=== PATIENT | female | born 1985 | race Caucasian/White ===

== ENCOUNTER 2024-07-31 06:39 | Day surgery (SDC) | payer BC, SELFPAY ==
[2024-07-31 07:46] VITALS: BP 115/86; PULSE 75; RESP 16; TEMP 36.1; O2SAT 100
[2024-07-31 07:51] VITALS: BMI 36.2
[2024-07-31] MEDS: LACTATED RINGERS 1000ML 1,000 ML 50 ML IV (07:52)
--- NOTE | 2024-07-31 08:03 | P.HP_ITS ---
History of Present Illness *Admission Date: 07/31/24 *Reason for visit:: Abdominal pain, bloating, nausea, vomiting and belching *History of present illness: Mrs. Obando is a 38-year-old female with long standing Crohn's disease of the small intestine. She has been on Stelara. In the past she had been on Humira, Entyvio and Cimzia with allergic reactions. Her colonoscopy in July 2018 showed complete colonoscopic remission. She did have ileal resection with ileocolonic anastomosis in August 2010 (Charli Guy MD). Her most recent colonoscopy with id was July 2023 and she had mild anastomotic stenosis which was dilated to 10 to 12 mm (from 7 to 8 mm) with primary remission of her ileal Crohn's disease and superficial ulceration of the anastomosis. The colonoscopy part was normal. The patient does state that recently she has had more problems. She did develop worsening diarrhea in May and her PCR testing came back positive for C. difficile. 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 She still has up to 10 loose watery bowel movements daily. Since the treatment, she still has fairly significant abdominal pain. She does take NSAIDs sometimes for the abdominal pain. She has had marked bloating, nausea and some vomiting. She has had moderate belching. Her KUB in the physician office showed no gaseous distention or obstipation. The patient remains on Stelara for her Crohn's disease and her recent fecal calprotectin level was 8. She also had negative H. pylori testing. [facility] Disclaimer: The information contained in this section may have been updated after the patient was seen, as this information can be updated by other users. Medical History Thyroid disease Sleep apnea Pelvic congestion syndrome GERD (gastroesophageal reflux disease) Crohn's disease Anemia Surgical History H/O: hysterectomy History of cholecystectomy H/O: Family History Other Family history of diabetes mellitus type II Family history of hypertension Social History Smoking Status: Current every day smoker alcohol intake: never substance use type: denies use current occupational status: employed Travel in the last 8 weeks: None caffeine: Yes Have you lived/traveled outside US in past 30 days?: No Contact w/someone who lives/traveled outside US past 30 days?: No Exposure to someone with infectious disease in past 14 days?: No Do you have a fever (greater than 100.4 F or 38 C)?: No Have you tested positive for COVID-19: No Exposed to someone with COVID-19 in past 14 days?: No Do you have a sore throat?: No Do you have a cough?: No Do you have any weakness?: No Do you have any diarrhea?: No Are you experiencing any unusual bleeding?: No Do you have any muscle aches/pain?: No Do you have any abdominal pain?: No Are you experiencing loss of taste or smell?: No Review of Systems Review of Systems Review of systems (narrative): Negative *Cardiovascular Comments: Negative *Gastrointestinal Comments: Negative *Genitourinary Comments: Negative *Musculoskeletal Comments: Negative *Neurologic Comments: Negative Meds Home Medications and Allergies Home Medications ?Medication ?Instructions ?Recorded ?Confirmed ?Type cholecalciferol (vitamin D3) 25 25 mcg PO DAILY 07/05/24 07/29/24 History mcg (1,000 unit) capsule ustekinumab 90 mg/mL subcutaneous 90 mg SQ Q8W 07/05/24 07/29/24 History syringe (Stelara) Lactobacillus rhamnosus GG 10 1 cap PO DAILY 07/09/24 07/29/24 History billion cell capsule (Culturelle) amitriptyline 10 mg tablet 10 mg PO BID #60 tabs 07/09/24 07/29/24 Rx kufqkewxpt-rqsbxcvtyhykg-ghxzslqk 2 tab PO DAILY Headache 07/09/24 07/29/24 History 50 mg-325 mg-40 mg tablet dicyclomine 10 mg capsule 10 mg PO ONCE PRN Fever Or Pain 07/09/24 07/29/24 History yjyhxq-eptarggg-iwfprbw 1 cap PO .With meals #60 caps 07/09/24 07/29/24 Rx 36,000-114,000-180,000 unit capsule,delay rel (Creon) New Prescriptions to Start Prescriptions: Allergies Allergy/AdvReac Type Severity Reaction Status Date / Time adalimumab (From Humira) Allergy Hives Verified 07/29/24 11:37 vedolizumab (From Entyvio) Allergy Hives Verified 07/29/24 11:37 Exam Data for Last 24 hours Vital signs and Labs for Last 24 Hours: Temp Pulse Resp BP Pulse Ox O2 Del Method 97 F L 75 16 115/86 100 Room Air 07/31/24 07:46 07/31/24 07:46 07/31/24 07:46 07/31/24 07:46 07/31/24 07:46 07/31/24 07:46 I & O for Last 24 hours: Intake & Output 07/28/24 07/29/24 07/30/24 07/31/24 23:59 23:59 23:59 23:59 Weight 198 lb *Routine HEENT Exam Head: Present normocephalic Eye: Present EOMI and PERRL ENT: Present mucous membranes moist *Routine Neck Exam Neck: Present supple *Routine Respiratory Exam Respiratory: Present CTA bilaterally *Routine Cardiovascular Exam Cardiovascular: Present RRR *Routine Abdominal Exam Abdominal: Present soft and normoactive bowel sounds; Absent tenderness *Routine Rectal Exam Rectal:: deferred *Routine Genitalia Exam Genitalia:: deferred *Routine Extremities Exam Extremities: Absent cyanosis, clubbing or edema *Routine Skin Exam Skin: Present warm; Absent rash *Routine Neurological Exam Neurological: Present alert and oriented X3 Assessment and Plan *Assessment and plan (1) Nausea and vomiting: Status: Acute Category: Medical Code(s): R11.2 - Nausea with vomiting, unspecified (2) Belching: Status: Acute Category: Medical Code(s): R14.2 - Eructation (3) Nausea: Status: Acute Category: Medical Code(s): R11.0 - Nausea (4) Diarrhea: Status: Acute Category: Medical Code(s): R19.7 - Diarrhea, unspecified (5) Functional abdominal pain syndrome: Status: Acute Category: Medical Code(s): R10.9 - Unspecified abdominal pain (6) Anastomotic stricture of small intestine: Status: Acute Category: Medical Code(s): K91.89 - Other postprocedural complications and disorders of digestive system; K91.30 - Postprocedural intestinal obstruction, unspecified as to partial versus complete (7) Crohn's disease of small intestine without complication: Status: Acute Category: Medical Code(s): K50.00 - Crohn's disease of small intestine without complications Plan A/P: 1. Abdominal pain with bloating, nausea, vomiting, belching and diarrhea is the preprocedural diagnosis. The patient will be anesthetized/sedated using MAC sedation. The patient has been seen and examined. Cardiac and lung assessment prior to the examination is stable. Proceed with planned diagnostic EGD
--- NOTE | 2024-07-31 08:05 | HMH.PROCNOTE ---
[facility] Procedure Note Date: 07/31/24 Time: 08:18 Procedure Note:: Upper Endoscopy Procedure Report: Esophagogastroduodenoscopy with cold biopsies Endoscopost: Ag William II, MD Referring Physician: Milagros Randhawa PA-C, [facility] [employer] [address] [place] [id number] Date of Procedure: July 31, 2024 Equipment: Olympus GIF 190 standard upper endoscope Sedation: MAC sedation Indications: Mrs. Obando is a 38-year-old female with long standing Crohn's disease of the small intestine. She has been on Stelara. In the past she had been on Humira, Entyvio and Cimzia with allergic reactions. Her colonoscopy in July 2018 showed complete colonoscopic remission. She did have ileal resection with ileocolonic anastomosis in August 2010 (Charli Guy MD). Her most recent colonoscopy with me was July 2023 and she had mild anastomotic stenosis which was dilated to 10 to 12 mm (from 7 to 8 mm) with primary remission of her ileal Crohn's disease and superficial ulceration of the anastomosis. The colonoscopy part was normal. The patient does state that recently she has had more problems. She did develop worsening diarrhea in May and her PCR testing came back positive for C. difficile. 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 She still has up to 10 loose watery bowel movements daily. Since the treatment, she still has fairly significant abdominal pain. She does take NSAIDs sometimes for the abdominal pain. She has had marked bloating, nausea and some vomiting. She has had moderate belching. Her KUB in the physician office showed no gaseous distention or obstipation. The patient remains on Stelara for her Crohn's disease and her recent fecal calprotectin level was 8. She also had negative H. pylori testing. Procedure: Prior to the procedure, a history and physical exam was performed, and patient's medications and allergies were reviewed. The risks, benefits and alternatives of the sedation and procedure were discussed with the patient. All questions were answered and informed consent was obtained. The patient was brought to the procedure room. Patient identification and proposed procedure were verified by the physician and the nurse. The patient was placed in a left lateral decubitus position and the scope was passed under direct vision. Throughout the procedure, the patient's blood pressure, pulse, and oxygen saturations were monitored continuously. The upper GI endoscopy was accomplished without difficulty. The patient tolerated the procedure well. Findings: The scope was passed directly into the upper esophagus and advanced to the third portion of the duodenum. The post bulbar duodenum and duodenal bulb were normal with normal mucosa and conniventes. Cold biopsies were taken from the first portion of duodenum and duodenal bulb to rule out celiac disease. The scope was withdrawn through a normal duodenal bulb and pylorus into the stomach. There was some mild linear reactive gastropathy of the antrum. The body and fundus of the stomach were normal. Upon retroflexion there was no hiatal hernia. Biopsies were taken from the antrum. The scope was then withdrawn into the esophagus. There was no evidence of reflux esophagitis or Bustillo's. The remainder of the esophageal mucosa was normal. Impression: 1. Mild linear reactive gastropathy Plan: I will follow-up the biopsies. I do feel that her anastomotic stricture is playing some role. I will discuss today about repeating colonoscopy with dilation of the anastomotic stricture. If this is more ischemic, she will possibly need referral to colorectal surgeon for primary repair and revision.
[2024-07-31 08:08] VITALS: O2SAT 99
--- NOTE | 2024-07-31 08:09 | P.PNANES_ITS ---
[facility] Disclaimer: The information contained in this section may have been updated after the patient was seen, as this information can be updated by other users. Medical History Thyroid disease Sleep apnea Pelvic congestion syndrome GERD (gastroesophageal reflux disease) Crohn's disease Anemia Surgical History H/O: hysterectomy History of cholecystectomy H/O: Family History Other Family history of diabetes mellitus type II Family history of hypertension Social History Smoking Status: Current every day smoker alcohol intake: never substance use type: denies use current occupational status: employed Travel in the last 8 weeks: None caffeine: Yes Have you lived/traveled outside [place] in past 30 days?: No Contact w/someone who lives/traveled outside US past 30 days?: No Exposure to someone with infectious disease in past 14 days?: No Do you have a fever (greater than 100.4 F or 38 C)?: No Have you tested positive for COVID-19: No Exposed to someone with COVID-19 in past 14 days?: No Do you have a sore throat?: No Do you have a cough?: No Do you have any weakness?: No Do you have any diarrhea?: No Are you experiencing any unusual bleeding?: No Do you have any muscle aches/pain?: No Do you have any abdominal pain?: No Are you experiencing loss of taste or smell?: No [facility] Anesthesia Checklist Patient Identification Patient Identification: Arm Band Structural Data Admitted From: Home Planned Operative Procedure/s: EGD Consent for Planned Operative Procedure(s) Verified: Yes Verified Documents: Surgical Consent and History and Physical NPO Status Verified Time NPO: 00:00 Additional verifications Anesthesia Reactions: Yes (PONV) Airway Assessment Mallampati Score:: Class II C-Spine Mobility Assessed: Yes TMJ Mobility Assessed: Yes Dentition: Good Dentition Neurological Assessment Level of Consciousness: Awake, Alert and Appropriate Anesthesia Plan Anesthesia Risk discussed: Yes Anesthesia Plan: Verified ASA Class: II Anesthesia Type: MAC
[2024-07-31 08:24] VITALS: BP 108/71; PULSE 18; RESP 16; TEMP 36.1; O2SAT 97
[2024-07-31 08:34] VITALS: BP 106/70; PULSE 87; RESP 16; O2SAT 98
[2024-07-31 08:44] VITALS: BP 100/64; PULSE 87; RESP 18; O2SAT 98
[2024-07-31 08:54] VITALS: BP 116/75; PULSE 88; RESP 18; O2SAT 99
== END 2024-07-31 09:18 | disposition home or self-care (01) ==
PROVIDERS: Visit Provider Internal Medicine Gastroenterology
PROC: 0DJ08ZZ Inspection of Upper Intestinal Tract, Via Natural or Artificial Opening Endoscopic (ICD-10-PCS; CPT 43239; principal; 2024-07-31 08:30)
DX: K31.9 Disease of stomach and duodenum, unspecified (principal); R11.2 Nausea with vomiting, unspecified; R14.2 Eructation; R19.7 Diarrhea, unspecified; R10.9 Unspecified abdominal pain; K91.89 Other postprocedural complications and disorders of digestive system; K91.30 Postprocedural intestinal obstruction, unspecified as to partial versus complete; K50.00 Crohn's disease of small intestine without complications
CPT/HCPCS: 43239; J2405; J7120

== ENCOUNTER 2024-10-28 06:53 | Day surgery (SDC) | payer BC, SELFPAY ==
[2024-10-25 09:46] VITALS: BMI 35.3
[2024-10-28 07:22] VITALS: BP 119/81; PULSE 81; RESP 16; TEMP 36.1; O2SAT 98
[2024-10-28] MEDS: LACTATED RINGERS 1000ML 1,000 ML 50 ML IV (07:41)
--- NOTE | 2024-10-28 07:52 | P.PNANES_ITS ---
[facility] Disclaimer: The information contained in this section may have been updated after the patient was seen, as this information can be updated by other users. Medical History Thyroid disease Sleep apnea Pelvic congestion syndrome GERD (gastroesophageal reflux disease) Crohn's disease Anemia Surgical History History of bowel resection History of lithotripsy History of dilatation and curettage History of tubal ligation History of adenoidectomy H/O: hysterectomy History of cholecystectomy H/O: Family History Other Family history of diabetes mellitus type II Family history of hypertension Social History (Updated 10/28/24 @ 07:38 by Mera Gray RN) Smoking Status: Former smoker alcohol intake: never substance use type: denies use current occupational status: employed Travel in the last 8 weeks?: None caffeine: Yes Have you lived/traveled outside US in past 30 days?: No Contact w/someone who lives/traveled outside US past 30 days?: No Exposure to someone with infectious disease in past 14 days?: No Do you have a fever (greater than 100.4 F or 38 C)?: No Have you tested positive for COVID-19?: No Exposed to someone with COVID-19 in past 14 days?: No Do you have a sore throat?: No Do you have a cough?: No Do you have any weakness?: No Are you experiencing any nausea/vomitting?: No Do you have any diarrhea?: No Are you experiencing any unusual bleeding?: No Do you have any muscle aches/pain?: No Do you have any abdominal pain?: No Are you experiencing loss of taste or smell?: No [facility] Anesthesia Checklist Patient Identification Patient Identification: Arm Band Structural Data Admitted From: Home Planned Operative Procedure/s: Colonoscopy Consent for Planned Operative Procedure(s) Verified: Yes Verified Documents: Surgical Consent and History and Physical NPO Status Verified Time NPO: 04:15 Additional verifications Anesthesia Reactions: Yes (PONV) Airway Assessment Mallampati Score:: Class II C-Spine Mobility Assessed: Yes TMJ Mobility Assessed: Yes Dentition: Good Dentition Neurological Assessment Level of Consciousness: Awake, Alert and Appropriate Anesthesia Plan Anesthesia Risk discussed: Yes Anesthesia Plan: Verified ASA Class: II Anesthesia Type: MAC
--- NOTE | 2024-10-28 08:07 | EXP.HP ---
History of Present Illness *Admission Date: 10/28/24 *Reason for visit:: Anastomotic stricture *History of present illness: Mrs. Obando is a 39-year-old female with long standing Crohn's disease of the small intestine. She has been on Stelara. In the past she had been on Humira, Entyvio and Cimzia with allergic reactions. Her colonoscopy in July 2018 showed complete colonoscopic remission. She did have ileal resection with ileocolonic anastomosis in August 2010 (Charli Guy MD). Her most recent colonoscopy with ct was July 2023 and she had mild anastomotic stenosis which was dilated to 10 to 12 mm (from 7 to 8 mm) with primary remission of her ileal Crohn's disease and superficial ulceration of the anastomosis. The colonoscopy part was normal. The patient does state that recently she has had more problems. She did develop worsening diarrhea in May and her PCR testing came back positive for C. difficile. 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 She still has up to 10 loose watery bowel movements daily. Since the treatment, she still has fairly significant abdominal pain. She does take NSAIDs sometimes for the abdominal pain. She has had marked bloating, nausea and some vomiting. She has had moderate belching. Her KUB in the physician office showed no gaseous distention or obstipation. The patient remains on Stelara for her Crohn's disease and her recent fecal calprotectin level was 8. She also had negative H. pylori testing. [facility] Disclaimer: The information contained in this section may have been updated after the patient was seen, as this information can be updated by other users. Medical History (Updated 10/28/24 @ 08:09 by Ag William II, MD) Thyroid disease Sleep apnea Pelvic congestion syndrome GERD (gastroesophageal reflux disease) Crohn's disease Anemia Surgical History History of bowel resection History of lithotripsy History of dilatation and curettage History of tubal ligation History of adenoidectomy H/O: hysterectomy History of cholecystectomy H/O: Family History Other Family history of diabetes mellitus type II Family history of hypertension Social History (Updated 10/28/24 @ 07:38 by Mera Gray RN) Smoking Status: Former smoker alcohol intake: never substance use type: denies use current occupational status: employed Travel in the last 8 weeks?: None caffeine: Yes Have you lived/traveled outside US in past 30 days?: No Contact w/someone who lives/traveled outside US past 30 days?: No Exposure to someone with infectious disease in past 14 days?: No Do you have a fever (greater than 100.4 F or 38 C)?: No Have you tested positive for COVID-19?: No Exposed to someone with COVID-19 in past 14 days?: No Do you have a sore throat?: No Do you have a cough?: No Do you have any weakness?: No Are you experiencing any nausea/vomitting?: No Do you have any diarrhea?: No Are you experiencing any unusual bleeding?: No Do you have any muscle aches/pain?: No Do you have any abdominal pain?: No Are you experiencing loss of taste or smell?: No Review of Systems Review of Systems Review of systems (narrative): Negative *Cardiovascular Comments: Negative *Gastrointestinal Comments: Negative *Genitourinary Comments: Negative *Musculoskeletal Comments: Negative *Neurologic Comments: Negative Meds Home Medications and Allergies Home Medications ?Medication ?Instructions ?Recorded ?Confirmed ?Type cholecalciferol (vitamin D3) 25 25 mcg PO DAILY 07/05/24 10/28/24 History mcg (1,000 unit) capsule ustekinumab 90 mg/mL subcutaneous 90 mg SQ Q8W 07/05/24 10/28/24 History syringe (Stelara) sizwcfklla-lipurooidlfxr-qhvxbtcf 2 tab PO DAILY Headache 07/09/24 10/28/24 History 50 mg-325 mg-40 mg tablet jhtjtc-akyyvuuw-pigihbs 1 cap PO .With meals #60 caps 07/09/24 10/28/24 Rx 36,000-114,000-180,000 unit capsule,delay rel (Creon) sodium,potassium,mag sulfates 17.5 See Rx Instructions PO .COMPLEX 10/15/24 10/28/24 Rx gram-3.13 gram-1.6 gram oral soln #354 mL (Suprep Bowel Prep Kit) New Prescriptions to Start Prescriptions: Allergies Allergy/AdvReac Type Severity Reaction Status Date / Time adalimumab (From Humira) Allergy Hives Verified 10/28/24 07:16 vedolizumab (From Entyvio) Allergy Hives Verified 10/28/24 07:16 Exam Data for Last 24 hours Vital signs and Labs for Last 24 Hours: Temp Pulse Resp BP Pulse Ox O2 Del Method 97.0 F L 81 16 119/81 98 Room Air 10/28/24 07:22 10/28/24 07:22 10/28/24 07:22 10/28/24 07:22 10/28/24 07:22 10/28/24 07:22 I & O for Last 24 hours: Intake & Output 10/25/24 10/26/24 10/27/24 10/28/24 23:59 23:59 23:59 23:59 Weight 193 lb *Routine HEENT Exam Head: Present normocephalic Eye: Present EOMI and PERRL ENT: Present mucous membranes moist *Routine Neck Exam Neck: Present supple *Routine Respiratory Exam Respiratory: Present CTA bilaterally *Routine Cardiovascular Exam Cardiovascular: Present RRR *Routine Abdominal Exam Abdominal: Present soft and normoactive bowel sounds; Absent tenderness *Routine Rectal Exam Rectal:: deferred *Routine Genitalia Exam Genitalia:: deferred *Routine Extremities Exam Extremities: Absent cyanosis, clubbing or edema *Routine Skin Exam Skin: Present warm; Absent rash *Routine Neurological Exam Neurological: Present alert and oriented X3 Assessment and Plan *Assessment and plan (1) Anastomotic stricture of intestine: Status: Acute Category: Medical Code(s): K91.30 - Postprocedural intestinal obstruction, unspecified as to partial versus complete (2) History of Crohn's disease: Status: Acute Category: Medical Code(s): Z87.19 - Personal history of other diseases of the digestive system (3) Crohn's disease of small intestine with intestinal obstruction: Status: Acute Category: Medical Code(s): K50.012 - Crohn's disease of small intestine with intestinal obstruction (4) History of Clostridioides difficile colitis: Status: Acute Category: Medical Code(s): Z86.19 - Personal history of other infectious and parasitic diseases (5) Bloating: Status: Acute Category: Medical Code(s): R14.0 - Abdominal distension (gaseous) (6) Nausea: Status: Acute Category: Medical Code(s): R11.0 - Nausea (7) Diarrhea: Status: Acute Category: Medical Code(s): R19.7 - Diarrhea, unspecified Plan A/P: 1. Bloating, nausea, diarrhea with history of Crohn's disease and anastomotic stricture is the preprocedural diagnosis. The patient will be anesthetized/sedated using MAC sedation. The patient has been seen and examined. Cardiac and lung assessment prior to the examination is stable. Proceed with planned diagnostic colonoscopy.
--- NOTE | 2024-10-28 08:10 | [facility].PROCNOTE ---
[facility] Procedure Note Date: 10/28/24 Time: 08:38 Procedure Note:: Colonoscopy Procedure Report: Colonoscopy with TTS balloon dilation and cold biopsies Endoscopist: Ag William II, MD Referring physician: Milagros Randhawa PA-C, [facility], [address] [place] [id number] Date of Procedure: October 28, 2024 Equipment: Olympus 190 variable stiffness pediatric colonoscope Sedation: MAC sedation Indication: Mrs. Obando is a 39-year-old female who is here for diagnostic colonoscopy. The patient has had long standing Crohn's disease of the small intestine and has been on Stelara. In the past she had been on Humira, Entyvio and Cimzia with allergic reactions. Her colonoscopy in July 2018 showed complete colonoscopic remission. She did have ileal resection with ileocolonic anastomosis in August 2010 (Charli Guy MD). Her most recent colonoscopy with me was July 2023 and she had mild anastomotic stenosis which was dilated to 10 to 12 mm (from 7 to 8 mm) with primary remission of her ileal Crohn's disease and superficial ulceration of the anastomosis. The colonoscopy part was normal. The patient does state that recently she has had more problems. She did develop worsening diarrhea in May and her PCR testing came back positive for C. difficile. 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 She still has up to 10 loose watery bowel movements daily. Since the treatment, she still has fairly significant abdominal pain. She does take NSAIDs sometimes for the abdominal pain. She has had marked bloating, nausea and some vomiting. She has had moderate belching. Her KUB in the physician office showed no gaseous distention or obstipation. The patient remains on Stelara for her Crohn's disease and her recent fecal calprotectin level was 8. She also had negative H. pylori testing. Procedure: Prior to the procedure, a history and physical exam was performed, and patient's medications and allergies were reviewed. The risks, benefits and alternatives of the sedation and procedure were discussed with the patient. All questions were answered and informed consent was obtained. The patient was brought to the procedure room. Patient identification and proposed procedure were verified by the physician and the nurse. The patient was placed in a left lateral decubitus position and the scope was passed under direct vision. Throughout the procedure, the patient's blood pressure, pulse, and oxygen saturations were monitored continuously. The colonoscopy was accomplished without difficulty. The patient tolerated the procedure well. Findings: On digital rectal examination there was normal rectal tone. There were no external hemorrhoids. The colonoscope was introduced through the anal canal to the rectum and advanced to the ileocolonic anastomosis. This was an end to side anastomosis and there was some ulceration and stenosis at the anastomosis. The colonoscope could not be introduced into the ileum initially. A wire-guided TTS hydrostatic balloon was utilized and dilated from 12 up to 15 mm with the TTS hydrostatic balloon and the colonoscope could then be advanced into the ileum. The colonoscope was advanced approximately 20 to 25 cm into the ileum and there was no evidence of any active Crohn's disease. The scope was withdrawn from the ileum through the anastomosis into the colon. The remaining ascending, transverse, descending, sigmoid and rectum were grossly normal. Cold biopsies were taken from the remaining ascending colon to rule out microscopic colitis. There were no evidence of any Crohn's colitis and no colonic mucosal abnormalities identified. Upon retroflexion within the rectum there were grade 1-2 internal hemorrhoids. The preparation was excellent throughout with Vardaman Preparation Score of 9. The cecal time was 12 minutes. Impression: 1. Prior ileocolonic resection with ileocolonic stricturing (approximately 8 to 9 mm diameter) dilated to 15 mm diameter 2. No evidence of active Crohn's ileitis or colitis 3. Grade 1-2 internal hemorrhoids Plan: I will follow-up the biopsies and discussed the findings with the patient and family. We will discuss additional treatment options. I would recommend that she continue Stelara. We may add dietary measures (low FODMAP) and digestive enzyme treatment.
[2024-10-28 08:43] VITALS: BP 119/73; PULSE 101; RESP 16; TEMP 36.3; O2SAT 96
[2024-10-28 08:53] VITALS: BP 122/73; PULSE 90; RESP 16; O2SAT 97
[2024-10-28 09:03] VITALS: BP 116/92; PULSE 87; RESP 16; O2SAT 97
[2024-10-28 09:09] VITALS: BP 129/83; PULSE 87; RESP 16; O2SAT 99
== END 2024-10-28 09:11 | disposition home or self-care (01) ==
PROVIDERS: Visit Provider Internal Medicine Gastroenterology
PROC: 0DJD8ZZ Inspection of Lower Intestinal Tract, Via Natural or Artificial Opening Endoscopic (ICD-10-PCS; CPT 45378; principal; 2024-10-28 08:30)
DX: K91.30 Postprocedural intestinal obstruction, unspecified as to partial versus complete (principal); K64.0 First degree hemorrhoids; K64.1 Second degree hemorrhoids; R14.2 Eructation; K50.012 Crohn's disease of small intestine with intestinal obstruction; R14.0 Abdominal distension (gaseous); R10.9 Unspecified abdominal pain; R11.0 Nausea; R19.7 Diarrhea, unspecified; Z79.899 Other long term (current) drug therapy; Z90.49 Acquired absence of other specified parts of digestive tract; Z87.891 Personal history of nicotine dependence; Z88.8 Allergy status to other drugs, medicaments and biological substances
CPT/HCPCS: 45380; 45386; C1726; J7120